=== PATIENT | male | born 1960 | race African-American/Black ===

== ENCOUNTER 2019-04-06 12:49 | Observation (INO) ==
[2019-04-06] MEDS ORDERED: ONDANSETRON 4 MG/2 ML VIAL IV PRN (13:06)
[2019-04-06] MEDS ORDERED: ACETAMINOPHEN 325 MG TABLET PO PRN (13:06)
[2019-04-06] MEDS ORDERED: DOCUSATE SODIUM 100 MG CAPSULE PO PRN (13:06)
[2019-04-06] MEDS ORDERED: NITROGLYCERIN SL 0.4 MG TABLET SL PRN (13:15)
[2019-04-06] MEDS ORDERED: SODIUM CHLORIDE 0.9% 1,000 ML IV SCH (13:30)
[2019-04-06] MEDS ORDERED: ENOXAPARIN 80 MG/0.8 ML SYRINGE SUBCUT ONE (14:30)
[2019-04-06] MEDS: ASPIRIN EC 81 MG TABLET PO SCH (15:18)
[2019-04-06 15:33] LABS: Troponin I 0.248 NG/ML (0.00-0.045)
[2019-04-07 05:29] LABS: Basophils # 0.1 10*3/uL (0.0-0.2); Basophils % 0.7 % (0.0-0.8); Eosinophils # 0.2 10*3/uL (0.0-0.87); Eosinophils % 1.7 % (0.00-10.9); Hemoglobin 12.9 GM/DL (14.0-18.0); Immature Granulocytes % 0.3 %; Immature Granulocytes Absolute 0.03 #; Lymphocytes # 3.7 10*3/uL (1.4-4.0); Lymphocytes % 38.9 % (21.2-54.2); Mean Corpuscular HGB Conc 32.3 GM/DL (32-36); Mean Corpuscular Volume 85.1 FL (87-102); Mean Platelet Volume 11.2 FL (9.6-12.0); Monocytes % 7.1 % (1.7-12.7); Neutrophils % 51.3 % (38.7-73.9); Platelet Count 235 T/CUMM (130-400); Red Cell Distribution Width 13.8 % (9.3-17.3); White Blood Count 9.5 T/CUMM (4-12)
[2019-04-07 05:59] LABS: Albumin 3.1 G/DL (3.4-5.0); Bilirubin,Total 0.9 MG/DL (0.2-1.0); Calcium 8.6 MG/DL (8.5-10.1); Osmolality,Calculated 290.6 MOS/KG (273-304); Total Protein 6.7 G/DL (6.4-8.3)
[2019-04-07] MEDS ORDERED: ROSUVASTATIN 10 MG TABLET PO SCH (09:00)
[2019-04-07] MEDS: ASPIRIN EC 81 MG TABLET PO SCH (09:07)
[2019-04-07] MEDS: PANTOPRAZOLE 40 MG TABLET PO SCH (09:08)
[2019-04-07] MEDS ORDERED: CLOPIDOGREL 300 MG TABLET PO ONE ×2 (12:05→13:00)
[2019-04-07] MEDS ORDERED: POTASSIUM CHLORIDE RIDER 10 MEQ in PREMIX 1 EACH IV PRN (12:05)
[2019-04-07] MEDS ORDERED: DIAZEPAM 5 MG TABLET PO ONE (12:05)
[2019-04-07] MEDS ORDERED: diphenhydrAMINE CAP 25 MG CAPSULE PO ONE (12:05)
[2019-04-07] MEDS ORDERED: MAGNESIUM SULF RIDER 2 GM in PREMIX 1 EACH IV PRN (12:05)
[2019-04-07] MEDS: SODIUM CHLORIDE 0.9% 1,000 ML IV SCH ×2 (15:44→22:19)
[2019-04-07] MEDS ORDERED: HEPARIN/NACL 0.9% 2 UNITS/ML 1,000 ML IV ONE (15:54)
[2019-04-07] MEDS ORDERED: LIDOCAINE 1% 20 ML VIAL ONE (15:54)
[2019-04-07] MEDS ORDERED: fentaNYL 100 MCG/2 ML VIAL ONE (16:21)
[2019-04-07] MEDS ORDERED: MIDAZOLAM 2 MG/2 ML VIAL ONE (16:21)
[2019-04-07] MEDS ORDERED: HEPARIN/NACL 0.9% 2 UNITS/ML 500 ML IV ONE (16:41)
[2019-04-07] MEDS ORDERED: NITROGLYCERIN DRIP 50 MG/250 ML BOTTLE IV ONE (16:46)
[2019-04-07] MEDS ORDERED: HEPARIN 5,000 UNIT/1 ML VIAL ONE ×2 (16:46→16:49)
[2019-04-07] MEDS ORDERED: CLOPIDOGREL 300 MG TABLET ONE (16:53)
[2019-04-07] MEDS ORDERED: SODIUM CHLORIDE 0.9% 1,000 ML IV SCH (18:59)
[2019-04-08] MEDS: SODIUM CHLORIDE 0.9% 1,000 ML IV SCH ×2 (04:58→11:58)
[2019-04-08 04:59] LABS: Basophils # 0.1 10*3/uL (0.0-0.2); Basophils % 0.6 % (0.0-0.8); Eosinophils # 0.1 10*3/uL (0.0-0.87); Eosinophils % 1.1 % (0.00-10.9); Hematocrit 39.3 VOL% (42.0-52.0); Hemoglobin 12.8 GM/DL (14.0-18.0); Immature Granulocytes % 0.3 %; Immature Granulocytes Absolute 0.03 #; Lymphocytes # 2.3 10*3/uL (1.4-4.0); Lymphocytes % 25.9 % (21.2-54.2); Mean Corpuscular HGB Conc 32.6 GM/DL (32-36); Mean Corpuscular Volume 83.6 FL (87-102); Mean Platelet Volume 10.8 FL (9.6-12.0); Monocytes % 7.8 % (1.7-12.7); Neutrophils % 64.3 % (38.7-73.9); Platelet Count 226 T/CUMM (130-400); Red Cell Distribution Width 13.7 % (9.3-17.3); White Blood Count 8.9 T/CUMM (4-12)
[2019-04-08 05:24] LABS: Calcium 8.7 MG/DL (8.5-10.1); Osmolality,Calculated 283.3 MOS/KG (273-304)
[2019-04-08] MEDS: PANTOPRAZOLE 40 MG TABLET PO SCH (08:43)
[2019-04-08] MEDS: ASPIRIN EC 81 MG TABLET PO SCH (08:43)
[2019-04-08] MEDS ORDERED: ROSUVASTATIN 20 MG TABLET PO SCH (09:00)
[2019-04-08] MEDS ORDERED: CLOPIDOGREL 75 MG TABLET PO SCH (09:00)
[2019-04-08 12:57] VITALS: BP 136/63
== END 2019-04-08 13:09 | disposition home or self-care (01) ==
LOC: N.2W → N.TELEN 04-07 18:49
PROVIDERS: ADMIT Family Medicine; ATTEND Family Medicine
PROC: CLCCHCL (ICD-10-PCS; 2019-04-07 16:45)